=== PATIENT | female | born 1975 | race African-American/Black ===

== ENCOUNTER 2021-03-15 00:52 | Emergency (ER) | payer MEDICAID ==
[2021-03-15 01:23] LABS: Bilirubin Neg (Negative); Blood, Urine 10 (Negative); Clarity Slightly Cloudy (Clear); Glucose, Urine (Dipstick) Normal (Negative); Ketone, Urine 5 mg/dL (Negative); Leukocyte 25 (Negative); Nitrite Negative (Negative); Protein, Urine (Dipstick) Negative (Neg-Trace); Specific Gravity, Urine 1.015 (1.002-1.036)
[2021-03-15 01:27] LABS: Pregnancy Test - Urine (BHCG) Negative (Negative); Pregu Control Bar Appear? YES (CONTROL BAR); Specific Gravity 1.015 (1.002-1.036)
[2021-03-15 01:28] LABS: Pregu Control Background? CLEAR/WHITE (CLR/WHITE)
[2021-03-15 01:35] LABS: Bacteria/HPF 2+ HPF (None Seen); RBC/HPF 0-3 HPF (0-3)
[2021-03-15 01:37] LABS: Mucous/LPF 2+ LPF (<2+)
== END 2021-03-15 01:41 | disposition home or self-care (01) ==
LOC: CSHERS 00:52
DX: N30.00 Acute cystitis without hematuria (principal)
CPT/HCPCS: 81003; 81015; 81025; 87086; 99284

== ENCOUNTER 2021-04-02 04:22 | Emergency (ER) | payer MEDICAID, OTHER ==
[2021-04-02] MEDS ORDERED: Ibuprofen 200 MG TAB ONE (05:05)
[2021-04-02] MEDS ORDERED: Acetaminophen 500 MG TAB ONE (05:06)
[2021-04-02 05:07] LABS: Bilirubin Neg (Negative); Blood, Urine 10 (Negative); Clarity Slightly Cloudy (Clear); Glucose, Urine (Dipstick) Normal (Negative); Ketone, Urine Negative (Negative); Leukocyte Negative (Negative); Nitrite Negative (Negative); Protein, Urine (Dipstick) Negative (Neg-Trace); Specific Gravity, Urine 1.025 (1.002-1.036); Urobilinogen Normal mg/dL (Less than 2)
[2021-04-02 05:30] LABS: RBC/HPF 0-3 HPF (0-3); WBC/HPF 0-3 HPF (0-3)
[2021-04-02 05:31] LABS: Bacteria/HPF Rare-Few HPF (None Seen)
== END 2021-04-02 06:30 | disposition home or self-care (01) ==
LOC: CSHERS 04:22
DX: R10.12 Left upper quadrant pain (principal); R35.0 Frequency of micturition; E03.9 Hypothyroidism, unspecified; Z79.899 Other long term (current) drug therapy
CPT/HCPCS: 81003; 81015; 99284

== ENCOUNTER 2021-05-20 12:26 | Emergency (ER) | payer OTHER ==
[2021-05-20 12:48] LABS: Bilirubin Neg (Negative); Blood, Urine Negative (Negative); Clarity Clear (Clear); Glucose, Urine (Dipstick) Normal (Negative); Ketone, Urine Negative (Negative); Leukocyte Negative (Negative); Nitrite Negative (Negative); Protein, Urine (Dipstick) Negative (Neg-Trace); Urobilinogen Normal mg/dL (Less than 2)
[2021-05-20 12:51] LABS: Pregnancy Test - Urine (BHCG) Negative (Negative); Pregu Control Background? CLEAR/WHITE (CLR/WHITE); Pregu Control Bar Appear? YES (CONTROL BAR)
[2021-05-20 12:57] LABS: #Monocytes 0.4 10x3/uL (0.0-1.1); #Neutrophils 4.3 10x3/uL (1.5-8.4); %Basophils 0.3 % (0.0-2.0); %Eosinophils 0.4 % (0.0-6.0); %Lymphocytes 29.5 % (18.0-47.0); %Monocytes 5.2 % (0.0-10.0); %Neutrophils 64.5 % (40.0-75.0); Hemoglobin 12.3 g/dL (12.0-15.5); Mean Corpuscular HGB CONC 32.7 g/dL (32.0-36.0); Mean Corpuscular Hemoglobin 27.8 pg (27.0-33.0); Mean Corpuscular Volume 85.1 fl (81.6-98.3); Platelet Count 218 10x3/uL (150-450); RBC Distribution Width 13.6 % (11.5-14.5); Red Blood Cell (RBC) Count 4.42 10x6/uL (3.90-5.03); White Blood Cell (WBC) Count 6.7 10x3/uL (3.5-10.5)
[2021-05-20 13:24] LABS: ALT (SGPT) 10 U/L (8-55); AST (SGOT) 10 U/L (5-34); Albumin 3.8 g/dL (3.5-5.0); Alkaline Phosphatase 77 U/L (40-110); Anion Gap 13 mmol/L (10-20); BUN (Urea Nitrogen) 9 mg/dL (7.0-18.7); Bilirubin, Total 0.3 mg/dL (0.2-1.2); Calc. Creatinine Clearance 0 mL/min (70-130); Calcium 9.2 mg/dL (7.8-10.44); Carbon Dioxide 26 mmol/L (22-29); Chloride 101 mmol/L (98-107); Globulin 4.6 g/dL (2.4-3.5); Glucose 98 mg/dL (70-105); Lipase 11 U/L (8-78); Potassium 3.8 mmol/L (3.5-5.1); Protein, Total 8.4 g/dL (6.0-8.3); Sodium 136 mmol/L (136-145)
== END 2021-05-20 15:28 | disposition home or self-care (01) ==
LOC: CSHERS 12:26
DX: K29.70 Gastritis, unspecified, without bleeding (principal); E03.9 Hypothyroidism, unspecified
CPT/HCPCS: 80053; 81003; 81025; 83690; 85025; 99284

== ENCOUNTER 2023-04-23 08:28 | Emergency (ER) | payer OTHER, SELFPAY | END 2023-04-23 09:24 | disposition home or self-care (01) | LOC: CSHERS 08:28 | DX: K60.2 Anal fissure, unspecified (principal) | CPT/HCPCS: 99283 ==